=== PATIENT | male | born 1940 | race Caucasian/White ===

== ENCOUNTER 2021-06-16 09:14 | Emergency (ER) | payer MEDICARE, OTHER ==
[2021-06-16] MEDS ORDERED: TYLENOL 325 MG PO ONE (09:30)
--- NOTE | 2021-06-16 09:31 | ERPHSYRPT ---
- History of Present Illness Time Seen by Provider: 06/16/21 09:30 Source: patient Exam Limitations: no limitations Patient Subjective Stated Complaint: Pt fell out of bed and hit the nightstand hitting his left brow/eye causing a 2 cm laceration Triage Nursing Assessment: Pt was brought to the ER by his , vitals wnl, rates pain as 3-4/10, 2.5 cm laceration from lateral left brow going down into the eyelid, bleeding has stopped, headache, doesn't appear to be in any distress Physician History: Patient is an 81-year-old male presents to our ED for evaluation of laceration to left eyebrow. Patient states he accidentally rolled out of bed. No loss of consciousness. Patient is on aspirin. He has a slight headache. Injury occurred just prior to arrival. Pain described as an ache that is localized. No radiation. No neck pain. Cervical spine cleared clinically. No associated neuro cardiovascular symptomology. No chest pain or shortness of breath. No nausea vomiting or diaphoresis. No numbness tingling or weakness. Patient presented to our ED due to the bleeding. Bleeding has stopped. No bleeding during my evaluation. No injury to the globe. Patient feels well otherwise. He voices no other complaints or concerns at this time. Occurred: just prior to arrival Severity: moderate Head Injury Location: frontal Method of Injury: fell Loss of Consciousness: no loss of consciousness Associated Symptoms: headaches, No nausea, No vomiting, No shortness of breath, No chest pain, No fever, No syncope Allergies/Adverse Reactions: No Known Drug Allergies Allergy (Verified 06/16/21 09:28) Home Medications: Amlodipine Besylate 5 mg [Norvasc 5 mg] 5 mg PO DAILY 04/11/14 [History] Aspirin 81 mg PO DAILY 04/11/14 [History] Isosorbide Mononitrate 30 mg [Imdur 30 MG] 15 mg PO HS 04/11/14 [History] Losartan/Hydrochlorothiazide [Losartan-Hctz 50-12.5 mg Tab] 1 tab PO DAILY 04/11/14 [History] Simvastatin 40 mg [Zocor 40 mg] 40 mg PO DAILY 04/11/14 [History] Citalopram Hydrobromide [Citalopram HBr] 40 mg PO DAILY 06/16/21 [History] Famotidine [Pepcid] 40 mg PO DAILY 06/16/21 [History] Metoprolol Succinate 50 mg [Toprol Xl 50 MG] 50 mg PO DAILY 06/16/21 [History] Pyridoxine HCl (Vitamin B6) [Vitamin B-6] 50 mg PO BID 06/16/21 [History] Tamsulosin HCl 0.4 mg PO DAILY 06/16/21 [History] Hx Tetanus, Diphtheria Vaccination/Date Given: Yes Hx Influenza Vaccination/Date Given: No Hx Pneumococcal Vaccination/Date Given: Yes Travel Risk - International Travel Have you traveled outside of the country in past 3 weeks: No - Coronavirus Screening Are you exhibiting any of the following symptoms?: No Close contact with a COVID-19 positive Pt in past 14-21 Days: No - Vaccine Status Have you recieved a Covid-19 vaccination: Yes General Matcher: Moderna - Vaccination Dates Date of 2cond Vaccination (if applicable): 11/2020 - Review of Systems Constitutional: No Symptoms, No Fever, No Chills Eyes: No Symptoms Ears, Nose, & Throat: No Symptoms Respiratory: No Symptoms, No Cough, No Dyspnea Cardiac: No Symptoms, No Chest Pain, No Edema, No Syncope Abdominal/Gastrointestinal: No Symptoms, No Abdominal Pain, No Nausea, No Vomiting, No Diarrhea Genitourinary Symptoms: No Symptoms, No Dysuria Musculoskeletal: No Symptoms, No Back Pain, No Neck Pain Skin: No Symptoms, No Rash Neurological: No Symptoms, No Dizziness, No Focal Weakness, No Sensory Changes Psychological: No Symptoms Endocrine: No Symptoms Hematologic/Lymphatic: No Symptoms Immunological/Allergic: No Symptoms All Other Systems: Reviewed and Negative - Past Medical History Pertinent Past Medical History: Yes Cardiac History: Arrhythmia, High Cholesterol, Hypertension, Myocardial Infarction (PR) Respiratory History: CHF GI Medical History: GERD - Past Surgical History Past Surgical History: Yes Cardiac: Cardiac Catheterization Musculoskeletal: Orthopedic Surgery - Social History Smoking Status: Never smoker Exposure to second hand smoke: No Drug Use: none Patient Lives Alone: No - Nursing Vital Signs Nursing Vital Signs: Initial Vital Signs Temperature 97.7 F 06/16/21 09:20 Pulse Rate 66 06/16/21 09:20 Blood Pressure 125/62 06/16/21 09:20 O2 Sat by Pulse Oximetry 97 06/16/21 09:20 Pain Scale Pain Intensity 2 - Brianne Coma Score Best Eye Response (Brianne): (4) open spontaneously Best Verbal Response ([place]): (5) oriented Best Motor Response ([place]): (6) obeys commands Brianne Total: 15 - Physical Exam General Appearance: no apparent distress, alert Eye Exam: bilateral eye: normal inspection, PERRL, EOMI ENT Exam: airway nml, No dental injury, No clear fluid (ears), No clear fluid (nose), No midface instability Neck Exam: supple, trachea midline, full range of motion, normal alignment Cardiovascular/Respiratory Exam: chest non-tender, normal breath sounds, regular rate/rhythm Gastrointestinal/Abdominal Exam: soft, non tender, no distention Back Exam: normal inspection, normal range of motion, No CVA tenderness, No vertebral tenderness Extremity Exam: non-tender, normal range of motion, normal inspection Mental Status Exam: alert, oriented x 3, cooperative, No agitated, No uncooperative cylindrical mixer Exam: normal hearing, normal speech, PERRL Coordination/Gait Exam: normal finger to nose, normal gait, normal cerebellar function Motor/Sensory Exam: no motor deficit, no sensory deficit, CN II-XII intact Skin Exam: normal color, warm, dry, No rash SpO2 Interpretation: normal SpO2: 97 O2 Delivery: Room Air Procedures - Laceration/Wound Repair Left Eye Time of Procedure: 09:54 Wound Location: Left (Left eyebrow and lateral canthus 2 sutures left lateral canthus 5 sutures left eyebrow) Wound Length (cm): 3 Wound's Depth, Shape: superficial Wound Explored: clean Irrigated: Yes Hibiclens Prep: Yes Anesthesia: local Volume Anesthetic (ccs): 3 Wound Debrided: minimal Wound Repaired With: sutures Suture Size/Type: 6-0, nylon Number of Sutures: 7 Layer Closure?: Yes Sterile Dressing Applied?: Yes Splint Applied?: No Sling Applied?: No Progress: Patient tolerated procedure well. No complications during or after procedure. 06/16/21 09:55 - Course Nursing assessment & vital signs reviewed: Yes - CT Exams Head CT Interpretation: Tele-radiologist Report (No acute intracranial pathology. Appropriate global atrophy and minimal periventricular degenerative microischemia bilaterally. Fourth ventricle is midline without hydrocephalus. Bony calvarium intact. Visualized paranasal sinuses and mastoid air cells are clear.) Ordered Tests: Active Orders 24 hr Category Date Time Status HEAD WITHOUT CONTRAST [CT] Stat Exams 06/16/21 09:29 Completed Medication Summary Discontinued Medications Generic Name Dose Route Start Last Admin Trade Name Sarita PRN Reason Stop Dose Admin Acetaminophen 975 mg 06/16/21 09:30 06/16/21 09:34 Tylenol 325 Mg PO 06/16/21 09:31 975 mg STAT ONE Administration Acetaminophen Confirm 06/16/21 09:32 Tylenol 325 Mg Administered 06/16/21 09:33 Dose 975 mg .ROUTE .[facility]-MED ONE - Progress Progress: improved Progress Note: Patient reassessed. He feels well. Patient received Tylenol for his headache. Headache resolved. Patient received 7 sutures to repair laceration just adjacent to eyebrow and lateral canthus. No involvement of the globe. No change in vision. In light of patient's headache and history of aspirin use patient had a CT head. CT head negative for acute intracranial pathology. No indication for antibiotics at this time. Patient states he is ready for discharge. Sutures are to be removed in 1 week's time. Patient voices no other complaints or concerns at this time. Will discharge home. Patient agrees to follow-up with his primary care doctor within 48 hours for reevaluation. Portions of this note were created with voice recognition technology. There may be grammatical, spelling, punctuation or sound alike errors 06/16/21 10:01 Counseled pt/family regarding: diagnosis, need for follow-up, rad results - Departure Departure Disposition: Home Clinical Impression: Fall, Eyebrow laceration Condition: Stable Critical Care Time: No Referrals: RADHA DAO MD [Primary Care Provider] - Additional Instructions: Discharge/Care Plan ARNOL REID was seen on 06/16/21 in the Emergency Room. The patient was counseled regarding Diagnosis,Lab results, Imaging studies, need for follow up and when to return to the Emergency Room. Prescriptions given: Discharge Note I have spoken with the patient and/or caregivers. I have explained the patient's condition, diagnosis and treatment plan based on the information available to me at this time. I have answered the patient's and/or caregiver's questions and addressed any concerns. The patient and/or caregivers have as good understanding of the patient's diagnosis, condition and treatment plan as can be expected at this point. The vital signs have been stable. The patient's condition is stable and appropriate for discharge from the emergency department. The patient will pursue further outpatient evaluation with the primary care physician or other designated or consulting physician as outlined in the discharge instructions. The patient and/or caregivers are agreeable to this plan of care and follow-up instructions have been explained in detail. The patient and/or caregivers have received these instruction. The patient/and or caregivers are aware that any significant change in condition or worsening of symptoms should prompt an immediate return to this or the closest emergency department or call 911.
[2021-06-16] MEDS ORDERED: TYLENOL 325 MG ONE (09:32)
--- NOTE | 2021-06-16 10:12 | XRAY ---
Indication: Left supraorbital injury following fall. Multiple contiguous axial images obtained through the head without contrast. Comparison: None Age-appropriate global atrophy and minimal periventricular degenerative micro-ischemia bilaterally. No acute intracranial hemorrhage, abnormal extra-axial fluid collection, or mass effect. Fourth ventricle is midline without hydrocephalus. Bony calvarium intact. Visualized paranasal sinuses and mastoid air cells are clear. Impression: Nonacute senile brain.
[2021-06-16 10:13] VITALS: BP 120/60; PULSE 88
[2021-06-16 10:15] VITALS: O2SAT 97
== END 2021-06-16 10:19 | disposition home or self-care (01) ==
LOC: ED 09:14
DX: S01.112A Laceration without foreign body of left eyelid and periocular area, initial encounter (principal); R51.9 Headache, unspecified; W06.XXXA Fall from bed, initial encounter; Y93.9 Activity, unspecified; Y92.9 Unspecified place or not applicable; Z79.899 Other long term (current) drug therapy; I10 Essential (primary) hypertension; I25.2 Old myocardial infarction; E78.00 Pure hypercholesterolemia, unspecified; I50.9 Heart failure, unspecified
CPT/HCPCS: 12011; 70450; 99283; A9270-GY